=== PATIENT | female | born 1950 | race Caucasian/White ===

== ENCOUNTER 2017-08-06 18:53 | Emergency (ER) | END 2017-08-06 20:28 | disposition home or self-care (01) ==

== ENCOUNTER 2017-08-17 18:29 | Emergency (ER) | END 2017-08-17 20:20 | disposition home or self-care (01) ==

== ENCOUNTER 2017-10-13 17:43 | Emergency (ER) | END 2017-10-13 20:34 | disposition home or self-care (01) ==

== ENCOUNTER 2017-12-03 09:25 | Inpatient (IN) | END 2017-12-05 23:28 | DRG 253 ==

== ENCOUNTER 2017-12-05 23:58 | Inpatient (IN) | END 2017-12-17 14:00 | disposition home health service (06) | DRG 300 ==

== ENCOUNTER 2018-06-02 11:08 | Emergency (ER) | payer MEDICARE, OTHER ==
[~2018-06-02] VITALS: Ht 152.4 cm; Wt 72.9 kg
[~2018-06-02 11:08] MED LIST: ASPI-903 PO; ATOR40TA68 PO; FENO48TA4 PO; FER325 PO; GLIP5TAB13 PO; HYDR25TA6 PO; LOSA100T15 PO; METF100010 PO; TERB250T13 PO
[2018-06-02 11:10] VITALS: Ht 152.4 cm; Wt 72.9 kg
--- NOTE | 2018-06-02 12:26 | ERD ---
ER Documentation Chief Complaint Chief Complaint RIGHT FOOT PAIN HPI 67-year-old female, with history of diabetes, presents to the emergency department, complaining of right fifth toe pain after direct trauma 3 days ago. The pain is dull, constant, 6/10. The patient has taking Motrin and Tylenol with improvement of the symptoms. ROS All systems reviewed and are negative except as per history of present illness. Medications Home Meds Active Scripts Acetaminophen* (Tylenol*) 325 Mg Tablet, 2 TAB PO Q8 PRN for PAIN AND OR ELEVATED TEMP, #20 TAB Prov:JIMMIE PEREA MD 06/02/18 Ibuprofen* (Motrin*) 400 Mg Tab, 400 MG PO Q8, #15 TAB Prov:JIMIME PEREA MD 06/02/18 Atorvastatin* (Atorvastatin*) 40 Mg Tablet, 40 MG PO HS for 30 Days, #30 TAB 4 Refills Prov:BRAULIO CONROY MD 12/05/17 Terbinafine Hcl* (Terbinafine Hcl*) 250 Mg Tablet, 250 MG PO BID for 7 Days, #14 TAB Prov:BRAULIO CONROY MD 12/05/17 Reported Medications Ferrous Sulfate* (Ferrous Sulfate*) 325 Mg Tabec, 325 MG PO DAILY, TAB 12/03/17 Aspirin* (Aspirin* Chew) 81 Mg Tab.chew, 81 MG PO DAILY, TAB.CHEW 12/03/17 Fenofibrate Nanocrystallized* (Fenofibrate*) Unknown Strength Tablet, PO DAILY, TAB 12/03/17 Glipizide* (Glipizide*) 5 Mg Tablet, 5 MG PO BID, TAB 12/03/17 Losartan Potassium* (Losartan Potassium*) 100 Mg Tablet, 100 MG PO DAILY, TAB 12/03/17 Hydrochlorothiazide* (Hydrochlorothiazide*) 25 Mg Tab, 25 MG PO DAILY, #30 TAB 12/03/17 Metformin Hcl* (Metformin Hcl*) 1,000 Mg Tablet, 1000 MG PO WITH BREAKFAST, #30 TAB 12/03/17 Allergies Allergies: Coded Allergies: No Known Drug Allergies (Verified Allergy, Mild, 06/02/18) PMhx/Soc History of Surgery: Yes (s/p R 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) Anesthesia Reaction: No Hx Neurological Disorder: No Hx Respiratory Disorders: No Hx Cardiac Disorders: Yes (HTN, HYPERLIPIDEMIA) Hx Psychiatric Problems: No Hx Miscellaneous Medical Probl: Yes (PVD, DM, HTN, s/p hemicolectomy ) Hx Alcohol Use: Yes (Occasionally drinks beer) Hx Substance Use: No Hx Tobacco Use: No Smoking Status: Former smoker FmHx Family History: No diabetes, No coronary disease Physical Exam Vitals Vital Signs Date Temp Pulse Resp B/P (MAP) Pulse Ox O2 O2 Flow FiO2 Time Delivery Rate 06/02/18 98.9 80 19 178/110 99 Room Air 14:49 (132) 06/02/18 96.8 94 19 189/91 96 11:10 (123) Physical Exam Const: No acute distress Head: Atraumatic Eyes: Normal Conjunctiva ENT: Normal External Ears, Nose and Mouth. Neck: Full range of motion. No meningismus. Resp: Clear to auscultation bilaterally Cardio: Regular rate and rhythm, no murmurs Abd: Soft, non tender, non distended. Normal bowel sounds Skin: No petechiae or rashes Back: No midline or flank tenderness Ext: Right foot: Fifth toe tender to palpation, with ecchymosis but no gross deformity, no edema. Distal neurovascular exam intact. Neur: Awake and alert Psych: Normal Mood and Affect Results 24 hrs DIAGNOSTIC IMAGING REPORT Patient: EMRE REAL : 1950 Age: 67 Sex: F MR #: [id number] DOS: 06/02/18 1225 Ordering MD: JIMMIE PEREA MD Location: [facility] Room/Bed: PROCEDURE: XR Foot. CLINICAL INDICATION: Rt mid foot injury TECHNIQUE: AP, lateral and oblique views of the right foot was obtained. The images were reviewed on a PACS workstation. COMPARISON: None. FINDINGS: Acute appearing, minimally-displaced fracture of the fifth toe proximal phalanx with adjacent soft tissue swelling. No definite intra-articular extension is detected. 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 Small calcaneal spurs. Severe vascular calcifications. IMPRESSION: Minimally-displaced fracture of the fifth toe proximal phalanx with adjacent soft tissue swelling. Mild to moderate degenerative joint disease at the first MTP joint. Calcaneal spurs. RPTAT:AAJJ Kirstin Majano Physician Date Time Electronically viewed and signed by Kirstin Majano Physician on 06/02/2018 13:51 RF/ CC: JIMMIE PEREA MD [id number] Procedures/MDM Differential diagnosis considered include but not limited are: sprain/strain, ligament injury, fracture, dislocation, low suspicion for acute infectious process. Soft compartments, neurovascular exam grossly intact. Physical examination and clinical presentation consistent with right fifth toe phalanx fracture. During the ED course the patient received treatment with daquan taping and Ortho shoe presenting overall improvement of the symptoms. Splint evaluation: Type: Body taping and Ortho shoe Location: Right foot Position: good alignment in anatomical position Neurovascular intact Results and clinical impression discussed with patient who agrees with management. The patient is stable to be treated outpatient and will be discharged home with recommendations for ice, rest and partial immobilization. NSAIDs 3 times daily for 5 days and close monitoring. The patient was instructed to follow up with the primary care provider in the next 48h. If symptoms persist, worsen or new symptoms develop, then patient should return to the ED immediately. Instructions explained and given to patient with acknowledgment and demonstrated understanding. Disclaimer: Inadvertent spelling and grammatical errors are likely due to EHR/dictation software use and do not reflect on the overall quality of patient care. Also, please note that the electronic time recorded on this note does not necessarily reflect the actual time of the patient encounter. Departure Diagnosis: Primary Impression: Right foot injury Additional Impression: Nondisplaced fracture of fifth right metatarsal bone Condition: Stable Additional Instructions: Muchas rufus por [facility] para valencia servicio. Esperamos que en valencia visita a la curry de emergencia valencia problema medico haya sido solucionado y que se sienta mucho mejor. Para estar seguros que valencia mejoria sigue en proceso, le pedimos el favor de hacer maryellen medina de seguimiento medico con valencia doctor primario en los proximos 2-4 naranjo. Lleve con usted estos documentos y las medicinas recetadas. Si tay sintomas empeoran, NO SE ESPERE, por favor regrese a curry de emergencia INMEDIATAMENTE. En jalil que usted no tenga un mdico de atencin primaria: Llame al mdico o clnica comunitaria de referencia que aparece abajo irma las horas de consultorio para hacer maryellen medina para que le vean. CLINICAS: [facility] [phone] [facility] [phone] [facility] [phone] [address] [facility] [phone] [address] [place] [id number] [phone] [facility] [phone] JIMMIE AVERY MD Jun 02, 2018 12:26
[2018-06-02] MEDS ORDERED: IBUP-1561 PO (14:26)
[2018-06-02] MEDS ORDERED: ACET325T33 PO (14:26)
[2018-06-02 14:49] VITALS: BP 178/110; PULSE 80; RESP 19
== END 2018-06-02 14:51 | disposition home or self-care (01) ==
LOC: FTE 11:08
DX: S92.354A Nondisplaced fracture of fifth metatarsal bone, right foot, initial encounter for closed fracture (principal); I10 Essential (primary) hypertension; E11.9 Type 2 diabetes mellitus without complications; X58.XXXA Exposure to other specified factors, initial encounter; Y92.9 Unspecified place or not applicable; Z87.891 Personal history of nicotine dependence; Z79.84 Long term (current) use of oral hypoglycemic drugs; Z79.82 Long term (current) use of aspirin
CPT/HCPCS: 73630